=== PATIENT | female | born 1955 | race Native Hawaiian/Other Pacific Islander ===

== ENCOUNTER 2019-03-20 11:37 | Outpatient (CLI) | payer OTHER | END 2019-03-20 23:03 | disposition home or self-care (01) | LOC: RESP 11:37 | DX: R00.2 Palpitations (principal) | CPT/HCPCS: 93225 ==

== ENCOUNTER 2019-05-09 09:01 | Outpatient (CLI) | payer OTHER | END 2019-05-09 22:15 | disposition home or self-care (01) | LOC: RESP 09:01 | DX: I35.0 Nonrheumatic aortic (valve) stenosis (principal); I71.4 Abdominal aortic aneurysm, without rupture; R00.2 Palpitations; G45.8 Other transient cerebral ischemic attacks and related syndromes; I10 Essential (primary) hypertension; R01.2 Other cardiac sounds | CPT/HCPCS: 93306 ==